=== PATIENT | male | born 1995 | race Caucasian/White ===

== ENCOUNTER 2020-03-30 21:17 | Emergency (ER) | payer BC, OTHER ==
--- NOTE | 2020-03-30 21:21 | PDOC ---
Rapid Medical Evaluation Time Seen by Provider: 03/30/20 21:19 Medical Evaluation: Allergies Allergy/AdvReac Type Severity Reaction Status Date / Time No Known Allergies Allergy Verified 05/03/14 13:32 03/30/20 21:19 I performed a brief in-person evaluation of this patient. Pt is a 24 y/o male who was working and cutting metal pipe and feels he got a piece of metal in his left eye. This happened at 10 am. He admits to having some blurred vision and pain. He states he finished work and then was unable to drive. Pertinent physical exam findings: L eye injected with watering I have ordered the following: fluorescein, tetracaine, visual acuity Patient to proceed to ED for further evaluation. Discharge Disposition - Diagnosis Foreign body of left eye - Referrals - Patient Instructions - Post Discharge Activity
[2020-03-30 21:22] VITALS: BP 149/99; PULSE 79; TEMP 97.8; BMI 32.5
[2020-03-30] MEDS ORDERED: FLUORESCEIN NA 1 EA STRIP OS ONE (21:22)
[2020-03-30] MEDS ORDERED: TETRACAINE 0.5% HCL 0.6ML DROPPER.BOTTLE OS ONE (21:22)
[2020-03-30] MEDS ORDERED: FLUORESCEIN NA 1 EA STRIP ONE (21:34)
[2020-03-30] MEDS ORDERED: TETRACAINE 0.5% OPHTH SOLN 2 ML BOTTLE ONE (21:34)
[2020-03-30] MEDS ORDERED: DIPHTH,PERTUSS(ACELL),TET 0.5 ML DISP.SYRIN IM ONE ×2 (21:41→21:47)
--- NOTE | 2020-03-30 21:45 | PDOC ---
History of Present Illness - General Chief Complaint: Eye Problem Stated Complaint: Eye Problem Time Seen by Provider: 03/30/20 21:19 - History of Present Illness Initial Comments: 03/30/20 21:42 24-year-old male not current on tetanus presents for evaluation of left eye irritation. Patient was working with a metal pipe cutting it when a piece of metal may have entered his left eye complains of pain tearing and blurry vision Past History - Medical History Allergies/Adverse Reactions: Allergies Allergy/AdvReac Type Severity Reaction Status Date / Time No Known Allergies Allergy Verified 05/03/14 13:32 Home Medications: Ambulatory Orders Tobramycin 0.3% Ophth Soln [Tobrex Ophthalmic Solution -] 1 drop OD Q4HWA #1 bot tle 03/30/20 COPD: No - Psycho-Social/Smoking History Smoking History: Never smoked Have you smoked in the past 12 months: No - Substance Abuse Hx (Audit-C & DAST Scrn) How often the patient has a drink containing alcohol: Monthly or less How often the patient has six or more drinks on one occasion: Less than monthly Score: In Men: 4 or > Positive; In Women: 3 or > Positive: 2 Screen Result (Pos requires Nsg. Audit-10AR): Negative In the last yr the pt used illegal drug/Rx for NonMed reason: No Score: Yes response is considered Positive: 0 Screen Result (Positive result requires Nsg. DAST-10): Negative Review of Systems - Review of Systems HEENTM: Yes: Eye Pain, Blurred Vision, Tearing, Recent change in vision *Physical Exam - Vital Signs Last Vital Signs Temp Pulse Resp BP Pulse Ox 97.8 F 79 19 149/99 100 03/30/20 21:19 03/30/20 21:19 03/30/20 21:19 03/30/20 21:19 03/30/20 21:19 - Physical Exam 03/30/20 21:42 Left thigh was anesthetized with tetracaine stained with floor seen there is a large for corneal abrasion without evidence of foreign body in the center position right under 12:00 of the eye ED Treatment Course - Medications Given in the ED: ED Medications Discontinued Medications Generic Name Dose Route Start Last Admin Trade Name Freq PRN Reason Stop Dose Admin Fluorescein Sodium 1 ea 03/30/20 21:22 03/30/20 21:36 Fluorets - OS 03/30/20 21:23 1 ea ONCE ONE Administration Tetracaine HCl 1 drop 03/30/20 21:22 03/30/20 21:36 Tetravisc 0.5% Eye Drops - OS 03/30/20 21:23 1 drop ONCE ONE Administration Medical Decision Making - Medical Decision Making 03/30/20 21:43 Tobramycin eyedrops follow-up with ophthalmology tomorrow without fail this is a large corneal abrasion I have reviewed the pathophysiology with the patient. They are in agreement with the treatment plan all questions were answered to their satisfaction. Understanding for follow-up without fail was also conveyed to the patient. Again they are in agreement. Discharge - Discharge Information Problems reviewed: Yes Clinical Impression/Diagnosis: Corneal abrasion, left Clinical Impression/Diagnosis: (Ruled Out): Foreign body of left eye Condition: Stable Disposition: HOME - Admission No - Additional Discharge Information Prescriptions: Tobramycin 0.3% Ophth Soln [Tobrex Ophthalmic Solution -] 1 drop OD Q4HWA #1 bottle - Follow up/Referral Referrals: Dusty Kam MD [Primary Care Provider] - Oscar Aviles MD [Staff Physician] - - Patient Discharge Instructions Additional Instructions: Please use the antibiotic eyedrops as directed and return to the emergency room should symptoms worsen. Without fail please follow-up with ophthalmology in 1 day for further evaluation and treatment options. If you cannot get in with ophthalmology you should return to the emergency room we will get an appointment for you. May take Tylenol and Motrin as directed for pain. Your tetanus shot was updated today. - Post Discharge Activity
== END 2020-03-30 21:54 | disposition home or self-care (01) ==
LOC: JERFT 21:17
PROC: 3E0234Z Introduction of Serum, Toxoid and Vaccine into Muscle, Percutaneous Approach (ICD-10-PCS; principal; 2020-03-30)
DX: S05.02XA Injury of conjunctiva and corneal abrasion without foreign body, left eye, initial encounter (principal)
CPT/HCPCS: 90715; 99284-25

== ENCOUNTER 2020-03-31 11:30 | Emergency (ER) | payer BC, OTHER ==
[2020-03-31 11:37] VITALS: BP 131/81; PULSE 70; TEMP 97.2; BMI 32.2
--- NOTE | 2020-03-31 11:54 | PDOC ---
History of Present Illness - General Chief Complaint: Eye Problem Stated Complaint: REVISIT Time Seen by Provider: 03/31/20 11:38 History Source: Patient Exam Limitations: Clinical Condition - History of Present Illness Initial Comments: 03/31/20 12:07 Patient with recent diagnosis of corneal abrasion to left eye yesterday and discharge on tobramycin drops with ophthalmology follow-up presents today for reevaluation as he was unable to see ophthalmology today. Patient reported calling ophthalmology office but did not have any appointment until next week. Denies any change in vision, blurry vision, eye pain. Patient using tobramycin eyedrops as prescribed. Denies any other symptoms Is this a multiple visit Asthma Patient?: No Timing/Duration: 24 hours Past History - Medical History Allergies/Adverse Reactions: Allergies Allergy/AdvReac Type Severity Reaction Status Date / Time No Known Allergies Allergy Verified 03/31/20 11:35 Home Medications: Ambulatory Orders Tobramycin 0.3% Ophth Soln [Tobrex Ophthalmic Solution -] 1 drop OD Q4HWA #1 bottle 03/30/20 COPD: No - Psycho-Social/Smoking History Smoking History: Never smoked Have you smoked in the past 12 months: No Information on smoking cessation initiated: No - Substance Abuse Hx (Audit-C & DAST Scrn) How often the patient has a drink containing alcohol: Never Score: In Men: 4 or > Positive; In Women: 3 or > Positive: 0 Screen Result (Pos requires Nsg. Audit-10AR): Negative In the last yr the pt used illegal drug/Rx for NonMed reason: No Score: Yes response is considered Positive: 0 Screen Result (Positive result requires Nsg. DAST-10): Negative Review of Systems - Review of Systems Able to Perform ROS?: Yes Is the patient limited Occitan proficient: No Constitutional: No: Chills, Fever, Malaise HEENTM: Yes: Symptoms Reported, See HPI, Eye Pain (left corneal abrasion). No: Blurred Vision, Tearing, Recent change in vision, Double Vision, Cataracts, Ear Pain, Ocular Prothesis, Ear Discharge, Nose Pain, Nose Congestion, Tinnitus, Nose Bleeding, Hearing Loss, Throat Pain, Throat Swelling, Mouth Pain, Dental Problems, Difficulty Swallowing, Mouth Swelling, Other Respiratory: No: Symptoms reported Cardiac (ROS): No: Symptoms Reported All Other Systems: Reviewed and Negative *Physical Exam - Vital Signs Last Vital Signs Temp Pulse Resp BP Pulse Ox 97.2 F L 70 18 131/81 98 03/31/20 11:35 03/31/20 11:35 03/31/20 11:35 03/31/20 11:35 03/31/20 11:35 - Physical Exam General Appearance: Yes: Nourished, Appropriately Dressed. No: Apparent Distress HEENT: positive: EOMI, [place], Normal ENT Inspection, Other ( mildly injected left conjunctiva with left corneal abrasion) Respiratory/Chest: negative: Respiratory Distress, Accessory Muscle Use Musculoskeletal: positive: Normal Inspection Extremity: positive: Normal Inspection, Normal Range of Motion Integumentary: positive: Normal Color Neurologic: positive: Fully Oriented, Alert, Normal Mood/Affect, Normal Response Medical Decision Making - Medical Decision Making 03/31/20 12:08 Patient with recent diagnosis of corneal abrasion to left eye yesterday and discharge on tobramycin drops with ophthalmology follow-up presents today for reevaluation as he was unable to see ophthalmology today. Patient reported calling ophthalmology office but did not have any appointment until next week. Denies any change in vision, blurry vision, eye pain. Patient using tobramycin eyedrops as prescribed. Denies any other symptoms Exam significant for mildly injected left conjunctiva with left corneal abrasion otherwise unremarkable exam. Patient in no acute distress. Call made to ophthalmology office Dr. Zavala office will be seen patient later on this afternoon. Office is closed at this time but after hours wrapping machine operator report will call patient after 1 PM and have patient seen to this afternoon. Plan discussed with patient patient agrees with plan. Patient stable for discharge with ophthalmology follow-up Discharge - Discharge Information Problems reviewed: Yes Clinical Impression/Diagnosis: Corneal abrasion, left Qualifiers: Encounter type: subsequent encounter Qualified Code(s): S05.02XD - Injury of conjunctiva and corneal abrasion without foreign body, left eye, subsequent encounter Condition: Stable Disposition: HOME - Admission No - Follow up/Referral Referrals: Shane Zavala MD [Staff Physician] - - Patient Discharge Instructions Patient Printed Discharge Instructions: DI for Corneal Abrasion Additional Instructions: You will be contacted from the referred ophthalmology office at 1:15 this afternoon to be seen either this afternoon or tomorrow morning. Make sure you follow-up with ophthalmology as soon as possible - Post Discharge Activity
== END 2020-03-31 12:09 | disposition home or self-care (01) ==
LOC: JERFT 11:30
DX: S05.02XA Injury of conjunctiva and corneal abrasion without foreign body, left eye, initial encounter (principal)
CPT/HCPCS: 99283-25

== ENCOUNTER 2023-06-12 20:18 | Emergency (ER) | payer BC, OTHER ==
[2023-06-12 20:23] VITALS: RESP 18; TEMP 98.3; BMI 31.7
[2023-06-12] MEDS ORDERED: ACETAMINOPHEN 500 MG TABLET (FP) PO ONE (21:10)
[2023-06-12] MEDS ORDERED: ACETAMINOPHEN 500 MG TABLET (FP) ONE (21:12)
[2023-06-13 00:44] VITALS: BP 138/78; PULSE 54
== END 2023-06-13 00:43 | disposition home or self-care (01) ==
LOC: JER 20:18
DX: R10.32 Left lower quadrant pain (principal); R55 Syncope and collapse; R93.89 Abnormal findings on diagnostic imaging of other specified body structures
CPT/HCPCS: 70450-TC; 70486-TC; 76870-TC; 93005; 93010; 99284-25